=== PATIENT | female | born 1990 | race Caucasian/White ===

== ENCOUNTER 2017-12-10 06:43 | Inpatient (IN) | payer BC, SELFPAY ==
[2017-12-10 07:22] VITALS: BMI 24.4
[2017-12-10 07:50] LABS: Hematocrit 33.4 % (37-47); Hemoglobin 10.7 g/dl (12.0-15.0); Mean Corpuscular Hgb 27.9 pg (27.0-32.0); Mean Platelet Vol. 10.1 fl (6.2-12.0); Platelet Count 188 K/mm3 (150-450); RBC Distribution Width CV 13.3 % (11.6-14.6); RBC Distribution Width SD 42.5 fl (35.1-43.9); Red Blood Count 3.84 M/mm3 (4.2-5.4); White Blood Count 11.2 K/mm3 (4.4-11.0)
[2017-12-10 07:51] LABS: Scan Indicated on CBC? Y/N NO
[2017-12-10] MEDS: Oxytocin 30 units/NS 500 ml 30 UNITS/500 ML IV.SOLN 334 UNITS IV (08:38)
--- NOTE | 2017-12-10 09:06 | OP.PCM_ITS ---
Vaginal Delivery Maternal Presentation: Active Labor Amniotic Membrane Rupture Type: Artificial Amniotic Fluid Description: Clear Final ANTONIO: 12/08/17 Final ANTONIO Source: US <20 weeks Gestational age: 40 Weeks and 2 Days Date of Procedure: 12/10/17 Pre-Operative Diagnosis: labor Post-Operative Diagnosis: same Surgery/ Procedure Performed: Spontaneous Vaginal Delivery Type of Anesthesia: Local with 1% lidocaine - 20 cc Description of Procedure: A vigorous female was delivered ELKE over a second-degree perineal laceration. The remainder the infant was delivered with maternal pushing and gentle traction only in less than 15 seconds. The Pitocin infusion was initiated for active management of the third stage. The cord was clamped and cut after 1 minute. The infant was attended to by the waiting nursing staff. The placenta was delivered spontaneously and intact. 20 cc of 1% lidocaine were infiltrated locally. The cervix and vagina were intact. The second- degree perineal laceration was repaired with 3-0 Vicryl suture in a running standard fashion. Sponge and needle counts were correct. A vaginal sweep was completed by me. Presentation: ELKE Placental Delivery Description: Spontaneous Placenta Disposition: [facility] Cord Vessel Description: 3 Vessels Cord Entanglement: None Drain: - - none Estimated Blood Loss: 400 Infant A gender: Female (1 minute): 8 (5 minute): 9 Episiotomy Description: None Laceration: 2nd degree - perineal Medications given after delivery: IV Pitocin Complications: None
[2017-12-10] MEDS: Oxytocin 30 units/NS 500 ml 30 UNITS/500 ML IV.SOLN 167 UNITS IV (09:08)
--- NOTE | 2017-12-10 13:42 | DCINST_ITS ---
Discharge Diet: No Restrictions Discharge Activity: Return to Normal Activity, May not drive while taking narcotic pain medications., May Shower May resume sexual activity in: 4-6 weeks Additional Activity Instructions:: Nothing in the vagina for 4-6 weeks. You may return to work/school in 6 weeks. Call your doctor if your incision/area has: Continuous Slow Oozing, Sudden Increased Bleeding, Increased Pain/ Swelling, Increased Redness, Foul Smelling Discharge Additional Instructions: If you experience any of the following, contact your healthcare provider. * Bleeding that soaks a pad every hour for 2 hours * Fever 100.4 or higher * Unrelieved incision or abdominal pain * Swelling, redness, discharge or bleeding from your incision or episiotomy site * Your incision begins to separate * Problems urinating (including inability to urinate or burning while urinating) . * Visual changes * Severe headache * Flu-like symptoms * Pain or redness in one of both of your breasts * Pain, warmth, tenderness or swelling in your legs, especially the calf area * Frequent nausea and vomiting * Symptoms of depression or anxiety If you experience any of the following, call 911 or go to the nearest Emergency Room. * Chest pain * Problems breathing * Seizure activity * Partial or complete paralysis of a body part, slurred speech, weakness or drooping of the face, or a sudden inability to walk or hold your balance Allergies/Adverse Reactions: Allergies ciprofloxacin [From Cipro] Allergy (Unknown, Verified 12/10/17 09:14) Other Pt states history of torn achilles tendon. Advised not to take cipro Medications to take at Discharge Ibuprofen [Motrin] 600 mg PO Q6H PRN #60 tab 12/10/17 The following prescriptions were given: Ibuprofen [Motrin] 600 mg PO Q6H PRN #60 tab PRN Reason: Pain Orders to be completed after discharge: Electric breast pump Location: None Selected Please Follow Up With: Suzette Dos Santos MD - [phone] When: Call to make an appointment with your provider's office in 6 weeks or as needed. If you had elevated Blood Pressure or 4th degree laceration you will need to be seen in 2 weeks.
--- NOTE | 2017-12-10 13:44 | PCM.HP.BLA ---
History and Physical History Date of Admission: 12/10/17 Final ANTONIO: 12/08/17 Final ANTONIO Source: LMP Gestational age: 40 Weeks and 2 Days History of this : 24-year-old 2 para 1 female at 40-2/7 weeks gestation with EDC of 12/08/2017 by last menstrual period confirmed by second trimester ultrasound presents complaining of contractions. She states they got worse 4 AM she had some irregular contractions last night. She denied any gross vaginal bleeding or leaking of fluid. When she arrived to labor and delivery she was examined by the nursing staff and found to be 8 cm. She was admitted for labor. She did not desire an epidural at this time. Pertinent Past Medical History: She denies any major medical problems, surgical history significant for repair of Achilles tendon. Obstetrical history significant for 1 previous full-term vaginal delivery of a 7 lbs. 14 oz. infant without complications. Current has been uncomplicated to date. Medical history is noncontributory. Allergies No Known Allergies Allergy (Verified 12/08/17 13:41) Smoking Status: Never smoker Alcohol: None Drug Use: none Number of Fetus(es): 1 Review of Systems Constitutional: Denies: Chills, Fever Cardiovascular: Denies: Chest Pain, Edema Respiratory: Denies: Cough Physical Exam General: Alert, Cooperative, No apparent distress Cardiovascular: Regular rate Lungs: Normal air movement Abdomen: Soft, Non-Distended, Tender - appropriately Extremities:: No edema Estimated gestational size: Appropriate for gestational size Presentation: Cephalic Assessment/Plan 24 YOF @ 40 2/7 weeks in labor expectant management EFW < 4500 gm, pelvis clinically adequate NO or epidural if requests for pain management
[2017-12-10 16:06] VITALS: BP 107/56; PULSE 74; RESP 16; TEMP 37.6
[2017-12-10] MEDS: Naproxen 250 MG Tablet PO (19:46)
[2017-12-10 19:53] VITALS: BP 111/64; PULSE 66; RESP 16; TEMP 37.3; O2SAT 97
[2017-12-11 00:35] VITALS: BP 104/61; PULSE 61; RESP 16; TEMP 37.1; O2SAT 97
[2017-12-11] MEDS: Acetaminophen 500 MG Tablet 1000 MG PO (00:56)
[2017-12-11 04:40] VITALS: BP 93/44; PULSE 59; RESP 16; TEMP 36.9; O2SAT 98
--- NOTE | 2017-12-11 07:55 | PCM.PN.OB ---
Subjective: pt seen at bedside, doing well. pt reports good pain control. lochia mild. Breast feeding. - Physical Exam General: Alert, Oriented x3 Abdomen: Soft, Non Tender, - - fundus firm Extremities: No Calf Tenderness Vital Signs Temp Pulse Resp BP Pulse Ox 98.5 F 59 L 16 93/44 L 98 12/11/17 04:40 12/11/17 04:40 12/11/17 04:40 12/11/17 04:40 12/11/17 04:40 Oxygen Delivery Method Room Air Weight: 75 kg Body Mass Index (BMI) 24.4 Laboratory Tests Past 24 Hrs 12/10/17 07:15 Blood Type B POSITIVE Antibody Screen NEGATIVE Assessment/Plan PPD#1, doing well routine care dc home
[2017-12-11 08:00] VITALS: BP 105/58; PULSE 68; RESP 18; TEMP 36.9
[2017-12-11] MEDS: Naproxen 250 MG Tablet PO (08:17)
[2017-12-11] MEDS: Senna/Docusate Sodium 1 Tablet PO (08:17)
[2017-12-11 14:00] VITALS: BP 98/52; PULSE 66; RESP 16; TEMP 36.7
[2017-12-11 15:30] VITALS: BP 98/52; PULSE 66; RESP 16; TEMP 36.7
== END 2017-12-11 15:30 | disposition home or self-care (01) | DRG 775 ==
PROVIDERS: Admitting Provider Obstetrics & Gynecology; Visit Provider Obstetrics & Gynecology
DX: O48.0 Post-term pregnancy (principal); O70.1 Second degree perineal laceration during delivery; Z3A.40 40 weeks gestation of pregnancy; Z37.0 Single live birth
CPT/HCPCS: 59050; 85027; 86850; 86900; 99218; G0378

== ENCOUNTER 2023-10-28 09:16 | Outpatient (CLI) | payer OTHER, SELFPAY ==
--- NOTE | 2023-10-28 09:24 | US_ITS ---
PROCEDURES: ULTRASOUND AORTA REASON FOR EXAM: Female, 33 years old. Unspecified abdominal pain TECHNIQUE: Ultrasound evaluation of the aorta was performed with real-time and static jennings-scale imaging. COMPARISON: None. FINDINGS: There is no elongation or tortuosity of the abdominal aorta. Aorta measures: Proximal 1.5 cm. Middle 1.6 cm. Distal 1.4 cm. Aorta measure transversely: Proximal 1.6 cm. Middle 1.4 cm. Distal 1.7 cm. Right iliac artery measures: 0.9 cm. Right iliac artery measure transversely: 1.0 cm. Left iliac artery measures: 0.8 cm. Left iliac artery measure transversely: 1.0 cm. There is no demonstrated aneurysm.. US/US ABD AORTA SCREEN/AAA IMPRESSION: Normal abdominal aorta. Electronically Signed: Cooper Butts MD at 15:37 EST ,
--- OUTSIDE RECORDS SUMMARY | 2023-10-28 09:43 | XMS RPT_ITS | CCD ---
Author Name Unknown Address [address] [place] [address] Organization [facility] Results Test Name Value Interpretation Reference Range Facil ity Progress note 06-04-2021 Note Date & Type Note Facility 06-04-2021 Note HNO ID: [id number] Author: Neeru Still APRN.[employer] MANAGER Service: ? Author Type: Nurse Practitioner Type: Progress Notes Filed: 06/04/2021 2:22 PM Note Text: 06/04/2021 Patient presents with: Establish Care SUBJECTIVE: This is a 30 year old that is here today for Above Complaints. Feels like hormones our off. Report CONTRACT RECRUITER doing some testing. CONTRACT RECRUITER and counselor thinks she may be depressed. Patient reports she does not feel depressed, however she admits to feeling irritable and a little down prior to her period. Does attend counseling once a month at [facility] Little or no interest or pleasure in doing things 1 Several days Feeling down, depressed, or hopeless 1 Several days Trouble falling or staying asleep, or sleeping too much 1 Several days Feeling tired or having little energy 1 Several days Poor appetite or overeating 0 Not at all Feeling bad about yourself- or that you are a failure or having let yourself or your family down 1 Several days Trouble concentrating on things, such as reading the newpaper or watching television 0 Not at all Moving or speaking so slowly that other people could have noticed? Or the opposite- being so fidgety or restless that you have been moving around a lot more than usual 0 Not at all Thoughts that you would be better off or of hurting yourself in some way 0 Not at all PHQ9P Score 5 If you checked off any problems, how difficult have these problems made it for you to do your work, take care of things at home, or get along with other people? Not difficult at all Feeling nervous, anxious, or on edge 1 Several days Not being able to stop or control worrying 1 Several days Worrying too much about different things 1 Several days Trouble relaxing 1 Several days Being so restless that it's hard to sit still 1 Several days Being easily annoyed or irritable 1 Several days Feeling afraid as if something awful might happen 0 Not at all sure MADELIN-7 Anxiety Score 6 If you checked off any problems, how difficult have these problems made it for you to do your work, take care of things at home, or get along with other people? Somewhat difficult Past medical surgical, family, social hx, medications, allergies and health maintenance, reviewed and updated. PAST MEDICAL HISTORY Diagnosis Date - NEGATIVE MEDICAL HISTORY ALLERGIES Ciprofloxacin MEDICATIONS No current outpatient medications on file. No current facility-administered medications for this visit. Medications and allergies reviewed by this provider. SOCIAL HISTORY Social History Tobacco Use - Smoking status: Never Smoker - Smokeless tobacco: Never Used Substance Use Topics - Alcohol use: Not on file - Drug use: Not on file REVIEW OF SYSTEMS GENERAL: No weight loss, malaise or fevers HEENT: Negative for frequent or significant headaches, No changes in hearing or vision, no nose bleeds or other nasal problems NECK: Negative for lumps, goiter, pain and significant neck swelling RESPIRATORY: Negative for cough, hemoptysis, wheezing, COPD, dyspnea or shortness of breath CARDIOVASCULAR: Negative for chest pain, leg swelling, hypertension, CHF or palpitations GI: No nausea, vomiting, or diarrhea and No heartburn or reflux symptoms : No history of dysuria, frequency or incontinence CONTRACT RECRUITER: Negative for abnormal vaginal bleeding, abnormal vaginal discharge MUSCULOSKELETAL: Negative for joint pain or swelling, back pain or muscle pain SKIN: Negative for lesions, rash, and itching PSYCH: See HPI HEMATOLOGY/LYMPHOLOGY: Negative for prolonged bleeding, bruising easily or swollen nodes ENDOCRINE: Negative for cold or heat intolerance, polyuria, polydipsia and goiter NEURO: No history of headaches, syncope, paralysis, seizures or tremors All other reviewed and negative other than HPI. OBJECTIVE: BP 112/72 Pulse 74 Temp 37 ?C (98.6 ?F) (Tympanic) Resp 14 Ht 175 cm (5' 8.9 ) Wt 65.3 kg (144 lb) LMP 05/13/2021 BMI 21.33 kg/m? . Vital signs reviewed by this provider. APPEARANCE Well appearing, alert, in no acute distress, well-hydrated, well nourished. EYES PERRLA, conjunctiva and sclera normal. EARS External ears normal, canals clear NECK Supple, no adenopathy; thyroid symmetric, normal size, no bruits HEART RRR with normal S1 and S2, no murmurs, no gallops, no JVD appreciated LUNG clear to auscultation. No wheezes, rhonchi, or rales EXTREMITIES Extremities normal, No deformities, No skin discoloration, No edema and Normal pulses bilaterally. SKIN Skin color, texture, turgor normal, no suspicious rashes or lesions PSYCH: Posture and motor behavior: normal posture and motor behavior Dress, grooming, personal hygiene: normal dress and grooming Facial expression: good eye contact Speech: normal speech Mood: cheerful Coherency and relevance of thought: normal thought processes Memory: normal memory HPV TESTING Never done HEPATITIS C (more content not included)... [facility] Progress note 05-22-2021 Note Date & Type Note Facility 05-22-2021 Note HNO ID: [id number] Author: Shey Hahn MD Service: ? Author Type: Physician Type: Progress Notes Filed: 05/22/2021 4:51 PM Note Text: Penny Conley is a 30 year old female who presents for multiple concerns today. Patient states has regular cycles approximately 20 to 30 days with 4 to 5 days of flow. Patient states her last cycle she had extreme breast tenderness and nausea which prompted her to take a test which was negative. Patient states prior to her menses approximately 1 weeks has extreme mood changes. Patient states she does see a counselor approximately 1-2 times per month due to history of depression. Patient states she does have a family history of bipolar disorder in brother and depression in her father. Patient is emotional today during her visit. She feels like there is something else that is contributing to her significant symptoms. Patient wonders if her thyroid is too low or high. Patient also states that she gets hangry when her blood sugar drops. Patient states she tries to eat a healthy diet but does eat more carbs. Patient reports she has a family history of type 1 diabetes and is concerned for that. Patient states she gets dizzy and shaky when her blood sugar drops and that contributes to her mood changes as well. Patient reports she tried control pills in the past did not have good reaction to them and does not desire control at this time. Patient is not actively trying for but would be okay if that happened. Patient states that she does have a history of depression after her second child and was never treated for it. Patient denies any suicidal or homicidal ideations. Patient states she does get some exercise but would like to get more. Patient denies any significant weight loss or weight gain or appetite changes. She denies any significant cold or heat intolerances. No other concerns today. PAST MEDICAL HISTORY Diagnosis Date - NEGATIVE MEDICAL HISTORY PAST SURGICAL HISTORY Procedure Laterality Date - REPAIR ACHILLES TENDON 2009 FAMILY HISTORY Problem Relation Age of Onset - Diabetes Brother Social History Tobacco Use - Smoking status: Never Smoker - Smokeless tobacco: Never Used Substance Use Topics - Alcohol use: Not on file - Drug use: Not on file Current Outpatient Medications Medication Sig - PNV NO.95/FERROUS FUM/FOLIC AC ( ORAL) Take by mouth. No current facility-administered medications for this visit. Allergies As of Date: 05/22/2021 Allergen Noted Reaction CIPROFLOXACIN 08/25/2012 Other: See Comments Fully Assessed 05/22/2021 REVIEW OF SYSTEMS Abdomen: no pain Bladder: no dysuria .. Expanded ROS: GENERAL: Negative for fever, ++ fatigue, mood changes Allergies and current medication updated:Yes EXAM: BP 110/60 Wt 141 lb (64.0kg) LMP 05/13/2021 GENERAL: emotional , female in no apparent distress HEENT: Normocephalic and atraumatic NECK: full range of motion DERMATOLOGY: Normal, without lesions, non-icteric and non-hirsute NEURO: alert and oriented x3,exam grossly non-focal EXTREMITIES: normal ASSESSMENT AND PLAN: Encounter Diagnosis ICD-10-CM 1. Depression, unspecified depression type F32.9 TSH BLD T3 BLD T4/FTI/T4U COMP METABOLIC PANEL CBC GLUC ANTON, 2-HR NON-GEST, 75 GM, FASTING 2. Shaking R25.1 TSH BLD T3 BLD T4/FTI/T4U COMP METABOLIC PANEL CBC GLUC ANTON, 2-HR NON-GEST, 75 GM, FASTING 3. Dizzy spells R42 TSH BLD T3 BLD T4/FTI/T4U COMP METABOLIC PANEL CBC GLUC ANTON, 2-HR NON-GEST, 75 GM, FASTING RTO for annual exam Recommend PCP for further evaluation. Reviewed OCP ([facility] or [facility]) vs antidepressant. If she chooses antidepressant due to family h/o Bipolar and major depression I would recommend she follow up and initiate rx with PCP or psychiatrist. Medical Decision Making: Problems: Low: 2+ self-limited or minor problems Moderate: New problem with uncertain prognosis Data: Unique test(s) ordered: 3+ Medical Decision Making Level: 4 - Moderate Shey Thompson MD [facility] Summary Purpose Family History No Family History Records Found Advance Directives No Advanced Directives Records Found Additional Source Comments INFORMATION SOURCE (unrecogn ized section and content) FOR RECORDS PERTAINING TO PATIENTS WHO ARE OR HAVE BEEN ENROLLED IN A CHEMICAL DEPENDENCY/SUBSTANCEABUSE PROGRAM, SOME INFORMATION MAY BE OMITTED. This clinical summary was aggregated from multiple sources. Caution should be exercised in using it in the provision of clinical care. This summary normalizes information from multiple sources, and as a consequence, information in this document may materially change the coding, format and clinical context of patient data. In addition, data may be omitted in some cases. CLINICAL DECISIONS SHOULD BE BASED ON THE PRIMARY CLINICAL RECORDS. [facility]. provides no warranty or guarantee of the accuracy or completeness of information in this document.
[2023-10-28 11:48] LABS: Vitamin B12 728 pg/mL (211-911); Vitamin D,25 Hydroxy 36.4 ng/mL
[2023-10-28 14:28] LABS: Hemoglobin A1c 5.7 % (3.8-5.6)
[2023-10-28 17:27] LABS: Ferritin 6 ng/mL (8-252); Follicle Stimulating Hormone 8.1 mIU/mL; Iron 26 ug/dL (50-170); Magnesium 2.2 mg/dL (1.6-2.6); T3 Uptake 35 % (30-39); T4 Total, Thyroxin 6.6 ug/dL (4.8-13.9); T7 / Free Thyroxin Index 2.3 (1.4-4.5); Thyroid Stim Hormone (TSH) 2.65 uIU/mL (0.358-3.74)
== END 2023-10-28 23:59 | disposition home or self-care (01) ==
DX: R53.83 Other fatigue (principal); F32.A Depression, unspecified; I83.899 Varicose veins of unspecified lower extremity with other complications; R10.9 Unspecified abdominal pain
CPT/HCPCS: 36415; 76706; 82306; 82607; 82728; 83001; 83036; 83090; 83540; 83735; 84436; 84443; 84479